=== PATIENT | male | born 1965 | race African-American/Black ===

== ENCOUNTER 2016-09-18 00:16 | Inpatient (IN) | payer SELFPAY ==
[~2016-09-18] VITALS: Ht 177.8 cm; Wt 94.5 kg
[2016-09-18] VITALS (56 sets, daily range): BP systolic 49–158; BP diastolic 20–97
[~2016-09-18 00:16] MED LIST: GLIP-116 PO; METF-314 PO
[2016-09-18 00:45] LABS: DEFINITIVE VIEW TRANSMISSION; Hemoglobin 10.5 g/dL (13.5-17.5); Mean Corpuscular Hemoglobin 26.2 pg (28.0-32.0); Mean Corpuscular Hgb Conc. 30.8 g/dL (32.0-36.0); Mean Platelet Volume 7.8 fL (7.4-10.4); Platelet Count (auto) 528 10^3/uL (140-450); Red Cell Distribution Width 16.5 % (11.6-16.0); SUSPECT VIEW TRANSMISSION
[2016-09-18 01:03] LABS: Albumin 1.8 g/dL (3.4-5.0); Anion Gap 24 (5-15); Calcium 8.4 mg/dL (8.5-10.1); Carbon Dioxide 14 mmol/L (21-32); Chloride 86 mmol/L (98-107); INR 1.14 (0.9-1.15); Magnesium 3.1 mg/dL (1.6-2.6); Partial Thromboplastin Time 29.4 sec (22.64-33.71); Potassium 5.5 mmol/L (3.5-5.1); Prothrombin Time 12.3 sec (9.37-12.3); Sodium 124 mmol/L (136-145)
[2016-09-18 01:05] LABS: Metamyelocytes % 0; Myelocytes % 0; Promyelocytes % 0; Reactive Lymphocytes 0
[2016-09-18 01:06] LABS: Aspartate Aminotransferase 14 U/L (15-37); BUN/Creatinine Ratio 40.1; Bilirubin, Total 2.1 mg/dL (0.2-1.0); GFR African American 35 mL/min; GFR Non-African American 29 mL/min; Total Protein 8.9 g/dL (6.4-8.2)
[2016-09-18 01:09] LABS: Alkaline Phosphatase 148 U/L (45-117)
[2016-09-18 01:11] LABS: Blood Urea Nitrogen 101 mg/dL (7-18); Glucose 775 mg/dL (74-106)
[2016-09-18] MEDS ORDERED: VANCOMYCIN 1GM/250ML D5W 250 ML IV ONE (01:15)
[2016-09-18] MEDS ORDERED: cefTRIAXone 1GM/50ML D5W 50 ML IV ONE (01:15)
[2016-09-18] MEDS ORDERED: SODIUM CHLORIDE 0.9% 1,000 ML IV ONE ×5 (01:30→11:00)
[2016-09-18 01:36] LABS: Lactic Acid w/Reflex 3.4 mmol/L (0.4-2.0)
[2016-09-18 01:44] LABS: Platelet Estimate Increased
[2016-09-18 01:49] LABS: REFLEX LACTIC ACID YES OR NO YES
[2016-09-18] MEDS ORDERED: InsuLIN REG 1unit/0.01ml Soln (100units/ml) IV ONE (02:00)
[2016-09-18 03:47] LABS: Lactic Acid w/Reflex 4.3 mmol/L (0.4-2.0)
[2016-09-18 04:00] LABS: REFLEX LACTIC ACID YES OR NO NO
[2016-09-18 04:19] LABS: Urine Blood TRACE /uL (Negative); Urine Color Yellow (Yellow); Urine Hyaline Cast MOD /lpf (0 - 2); Urine Ketone Negative (Negative); Urine Nitrite Negative (Negative); Urine RBC 1 /hpf (0 - 3); Urine Squamous Epithelial Cell FEW /hpf (<5)
[2016-09-18 04:20] LABS: Urine Bilirubin POSITIVE (Negative); Urine Glucose 4+ mg/dL (Normal)
[2016-09-18] MEDS ORDERED: NOREPINEPHRINE BITARTRATE 250 ML IV ONE (05:16)
[2016-09-18] MEDS ORDERED: InsuLIN R (HUMAN) 100 UNITS in SODIUM CHL 0.9% 99 ML IV SCH ×3 (05:29→10:01)
[2016-09-18] MEDS ORDERED: DEXTROSE (50%) 50ML SYRG IV PRN ×2 (05:30→07:15)
[2016-09-18] MEDS: NOREPINEPHRINE BITARTRATE 250 ML IV SCH ×2 (05:39→17:35)
[2016-09-18] MEDS: ACCU-CHEK COMFORT CURVE STRIP VI SCH ×15 (06:08→23:58)
[2016-09-18] MEDS ORDERED: ONDANSETRON HCL 4 MG/2 ML VIAL IV ONE (06:30)
[2016-09-18] MEDS ORDERED: HYDROmorphone HCL 2 MG/ML VL IV ONE (06:30)
[2016-09-18 06:33] LABS: Allen Test No; Base Excess -10.4 mmol/L (-2.0-2.0); Blood 02Sat 97.5 % (96-100); Blood COHb 0.3 % (0.5-1.5); Blood MetHb 0.3 % (0.0-1.5); HCO3 12.5 mmol/L (22-26.0); HHb 2.5 % (0.0-5.0); MODE NASAL CANNULA; O2Hb 96.9 % (94.0-97.0); PCO2 20.2 mmHg (35.0-45.0); PCO2(T) 20.2 mmHg (35.0-45.0); PO2 126.2 mmHg (80.0-100.0); PO2(T) 126.2 mmHg (80.0-100.0); Sample Type Arterial
[2016-09-18] MEDS ORDERED: ONDANSETRON HCL 4 MG/2 ML VIAL IV PRN (07:15)
[2016-09-18] MEDS ORDERED: ACETAMINOPHEN 325 MG TAB PO PRN (07:15)
[2016-09-18] MEDS ORDERED: NITROGLYCERIN 0.4 MG SL TAB SL PRN (07:15)
[2016-09-18] MEDS ORDERED: MORPHINE SULF INJ 2 MG/ML SYRINGE 1ML IV PRN ×2 (07:15)
[2016-09-18] MEDS: SODIUM CHLORIDE 0.9% 1,000 ML IV SCH ×4 (07:32→18:44)
[2016-09-18 08:18] LABS: Calcium 8.2 mg/dL (8.5-10.1); Potassium 4.9 mmol/L (3.5-5.1)
[2016-09-18] MEDS: ENOXAPARIN SOD 40 MG/0.4 ML SYRINGE SC SCH (09:53)
[2016-09-18] MEDS: PANTOPRAZOLE SODIUM 40 MG/10 ML VIAL IV SCH (09:53)
[2016-09-18 10:44] LABS: Allen Test Modified; Blood 02Sat 97.4 % (96-100); Blood COHb 1.1 % (0.5-1.5); Blood MetHb 0.3 % (0.0-1.5); HCO3 17.8 mmol/L (22-26.0); HHb 2.6 % (0.0-5.0); MODE NASAL CANNULA; PCO2 29.2 mmHg (35.0-45.0); PCO2(T) 29.2 mmHg (35.0-45.0); PO2 116.5 mmHg (80.0-100.0); PO2(T) 116.5 mmHg (80.0-100.0); Sample Type Arterial; pH 7.403 (7.350-7.450)
[2016-09-18] MEDS: ALBUMIN 25% 100 ML IV SCH ×2 (11:08→12:20)
[2016-09-18] MEDS ORDERED: fentaNYL CITRATE 100 MCG/2 ML VL ONE (12:19)
[2016-09-18] MEDS ORDERED: ETOMIDATE (2MG/ML) 20ML VIAL IV ONE (12:19)
[2016-09-18] MEDS ORDERED: MIDAZOLAM HCL 1MG/1ML-2 ML VIAL ONE ×2 (12:19→14:42)
[2016-09-18] MEDS ORDERED: PHENYLEPHRINE HCL 10 MG/ML VL ONE (12:19)
[2016-09-18] MEDS ORDERED: ROCURONIUM 10MG/ML 10ML VIAL IV ONE (12:19)
[2016-09-18] MEDS ORDERED: SODIUM CHLORIDE LOCK 20 ML ONE (12:19)
[2016-09-18] MEDS ORDERED: D5W/SOD CHL 0.45%/KCL 20MEQ 1,000 ML IV SCH (12:30)
[2016-09-18] MEDS ORDERED: VANCOMYCIN PER PHARMACY 0 MG IV SCH (13:00)
[2016-09-18] MEDS: PIPERACILLIN-TAZOB 3.375GM 100 ML IV SCH ×3 (13:00→23:58)
[2016-09-18] MEDS ORDERED: SODIUM CHLORIDE 0.9% 1,000 ML IV SCH (13:07)
[2016-09-18] MEDS: InsuLIN R (HUMAN) 100 UNITS in SODIUM CHL 0.9% 99 ML IV SCH ×2 (13:26→17:49)
[2016-09-18 14:00] LABS: Partial Thromboplastin Time 31.9 sec (22.64-33.71)
[2016-09-18] MEDS ORDERED: HYDROmorphone HCL 2 MG/ML VL ONE ×2 (14:09→14:29)
[2016-09-18 14:20] LABS: Albumin 2.3 g/dL (3.4-5.0); BUN/Creatinine Ratio 45.7; Bilirubin, Total 2.1 mg/dL (0.2-1.0); Calcium 7.9 mg/dL (8.5-10.1); Potassium 4.1 mmol/L (3.5-5.1); Total Protein 7.7 g/dL (6.4-8.2)
[2016-09-18 14:24] LABS: INR 1.2 (0.9-1.15)
[2016-09-18 14:26] LABS: DEFINITIVE VIEW TRANSMISSION; Hematocrit 24.8 % (41.0-53.0); Hemoglobin 8.2 g/dL (13.5-17.5); Mean Corpuscular Hemoglobin 27.1 pg (28.0-32.0); Mean Corpuscular Hgb Conc. 33.2 g/dL (32.0-36.0); Mean Corpuscular Volume 81.9 fL (80.0-100.0); Mean Platelet Volume 7.4 fL (7.4-10.4); Platelet Count (auto) 499 10^3/uL (140-450); Red Cell Distribution Width 17.4 % (11.6-16.0); SUSPECT VIEW TRANSMISSION; White Blood Cell 28.5 10^3/uL (4.4-10.8)
[2016-09-18 14:29] LABS: Metamyelocytes % 0; Myelocytes % 0; Promyelocytes % 0; Reactive Lymphocytes 0
[2016-09-18 14:48] LABS: Platelet Estimate Increased; RBC Morphology Normal
[2016-09-18] MEDS ORDERED: MIDAZOLAM DRIP 100 mg/100mL NS 100 ML IV SCH (16:03)
[2016-09-18] MEDS ORDERED: TPN PER PHARMACY 0 ML IV SCH (16:30)
[2016-09-18] MEDS ORDERED: ALBUMIN 25% 50 ML IV ONE ×2 (16:30)
[2016-09-18] MEDS: PHENYLEPHRINE INJ 20 MG in SODIUM CHL 0.9% 250 ML IV SCH ×2 (16:30→20:04)
[2016-09-18 16:50] LABS: Allen Test Modified; Base Excess -13.3 mmol/L (-2.0-2.0); Blood 02Sat 98.3 % (96-100); Blood COHb 1.1 % (0.5-1.5); Blood MetHb 0.1 % (0.0-1.5); HCO3 15.2 mmol/L (22-26.0); HHb 1.7 % (0.0-5.0); MODE VENT - A/C; O2Hb 97.1 % (94.0-97.0); PCO2 47.6 mmHg (35.0-45.0); PCO2(T) 47.6 mmHg (35.0-45.0); PO2 181.1 mmHg (80.0-100.0); PO2(T) 181.1 mmHg (80.0-100.0); Sample Type Arterial; pH 7.123 (7.350-7.450)
[2016-09-18] MEDS ORDERED: MAGNESIUM SULFATE 1GM/100ML 200 ML IV ONE (17:24)
[2016-09-18] MEDS ORDERED: SODIUM BICARBONATE 8.4% INJ 50ML SYRINGE ONE (17:47)
[2016-09-18] MEDS ORDERED: EPINEPHrine HCL 250 ML IV ONE (17:47)
[2016-09-18] MEDS ORDERED: EPINEPHrine HCL INJECTION 4 MG in D5W 5% 250 ML IV SCH (18:00)
[2016-09-18] MEDS: MAGNESIUM SULFATE 1GM/100ML 100 ML IV SCH ×2 (18:00→19:00)
[2016-09-18] MEDS ORDERED: SODIUM BICARBONATE 8.4 % INJ 50ML VIAL IV ONE ×2 (18:00→20:45)
[2016-09-18] MEDS ORDERED: D5W IV SCH (18:00)
[2016-09-18] MEDS ORDERED: SODIUM BICARBONATE IV SCH (18:00)
[2016-09-18] MEDS ORDERED: SODIUM BICARB IV SCH (18:00)
[2016-09-18 18:01] LABS: Albumin 1.9 g/dL (3.4-5.0); BUN/Creatinine Ratio 42.5; Calcium 6.6 mg/dL (8.5-10.1); Magnesium 2.7 mg/dL (1.6-2.6); Potassium 4.1 mmol/L (3.5-5.1)
[2016-09-18 18:03] LABS: Lactic Acid w/Reflex 5.5 mmol/L (0.4-2.0)
[2016-09-18 18:06] LABS: REFLEX LACTIC ACID YES OR NO YES
[2016-09-18 18:09] LABS: Bilirubin, Total 1.7 mg/dL (0.2-1.0); Total Protein 6.5 g/dL (6.4-8.2)
[2016-09-18 18:39] LABS: DEFINITIVE VIEW TRANSMISSION; Hematocrit 24.5 % (41.0-53.0); Hemoglobin 8.1 g/dL (13.5-17.5); Mean Corpuscular Hemoglobin 27.4 pg (28.0-32.0); Mean Corpuscular Hgb Conc. 33.1 g/dL (32.0-36.0); Mean Corpuscular Volume 82.8 fL (80.0-100.0); Mean Platelet Volume 7.1 fL (7.4-10.4); Platelet Count (auto) 533 10^3/uL (140-450); Red Cell Distribution Width 17.5 % (11.6-16.0); SUSPECT VIEW TRANSMISSION
[2016-09-18 18:42] LABS: White Blood Cell 43.2 10^3/uL (4.4-10.8)
[2016-09-18 18:43] LABS: Metamyelocytes % 0; Myelocytes % 0; Promyelocytes % 0; Reactive Lymphocytes 0
[2016-09-18] MEDS ORDERED: PHENYLEPHRINE IV 250 ML IV ONE (19:31)
[2016-09-18] MEDS ORDERED: VASOPRESSIN 20 UNIT/ML ONE (19:35)
[2016-09-18] MEDS ORDERED: VASOPRESSIN 50 UNITS in SODIUM CHL 0.9% 247.5 ML IV SCH (19:45)
[2016-09-18 20:01] LABS: Burr Cells FEW; Platelet Estimate Increased
[2016-09-18 20:30] LABS: Base Excess -13.2 mmol/L (-2.0-2.0); Blood 02Sat 69.8 % (96-100); Blood COHb 1.2 % (0.5-1.5); Blood MetHb 0.5 % (0.0-1.5); HCO3 17.7 mmol/L (22-26.0); HHb 29.7 % (0.0-5.0); MODE VENT - A/C; O2Hb 68.6 % (94.0-97.0); PCO2 76.9 mmHg (35.0-45.0); PCO2(T) 76.9 mmHg (35.0-45.0); PO2 54.9 mmHg (80.0-100.0); PO2(T) 54.9 mmHg (80.0-100.0); Sample Type Arterial; pH 6.979 (7.350-7.450)
[2016-09-18] MEDS: PHENYLEPHRINE INJ 40 MG in SODIUM CHL 0.9% 250 ML IV SCH (21:55)
[2016-09-18 23:19] LABS: Base Excess -3.1 mmol/L (-2.0-2.0); Blood 02Sat 99.4 % (96-100); Blood COHb 1.1 % (0.5-1.5); Blood MetHb 0.6 % (0.0-1.5); HCO3 22.6 mmol/L (22-26.0); HHb 0.6 % (0.0-5.0); MODE VENT - A/C; O2Hb 97.7 % (94.0-97.0); PCO2 43.9 mmHg (35.0-45.0); PCO2(T) 43.9 mmHg (35.0-45.0); Sample Type Arterial
[2016-09-19] VITALS (68 sets, daily range): BP systolic 0–162; BP diastolic 0–94
[2016-09-19] MEDS: ACCU-CHEK COMFORT CURVE STRIP VI SCH ×10 (01:07→11:00)
[2016-09-19 01:13] LABS: BUN/Creatinine Ratio 36.2; Calcium 6.9 mg/dL (8.5-10.1); Potassium 3.8 mmol/L (3.5-5.1)
[2016-09-19] MEDS: PHENYLEPHRINE INJ 40 MG in SODIUM CHL 0.9% 250 ML IV SCH ×2 (02:00→08:49)
[2016-09-19] MEDS ORDERED: InsuLIN R (HUMAN) 100 UNITS in SODIUM CHL 0.9% 99 ML IV SCH ×3 (03:01→05:36)
[2016-09-19 04:09] LABS: DEFINITIVE VIEW TRANSMISSION; Hematocrit 27.8 % (41.0-53.0); Mean Corpuscular Hemoglobin 26.9 pg (28.0-32.0); Mean Corpuscular Hgb Conc. 32.5 g/dL (32.0-36.0); Mean Corpuscular Volume 82.7 fL (80.0-100.0); Mean Platelet Volume 6.7 fL (7.4-10.4); Platelet Count (auto) 460 10^3/uL (140-450); Red Cell Distribution Width 17.9 % (11.6-16.0); SUSPECT VIEW TRANSMISSION; White Blood Cell 22.1 10^3/uL (4.4-10.8)
[2016-09-19 04:10] LABS: Promyelocytes % 0; Reactive Lymphocytes 0
[2016-09-19 04:44] LABS: Albumin 2.1 g/dL (3.4-5.0); BUN/Creatinine Ratio 36.1; Bilirubin, Total 2.8 mg/dL (0.2-1.0); Magnesium 3.2 mg/dL (1.6-2.6); Phosphorus 3.4 mg/dL (2.5-4.90); Potassium 3.9 mmol/L (3.5-5.1); Total Protein 7.2 g/dL (6.4-8.2); Uric Acid 11.9 mg/dL (3.5-7.2)
[2016-09-19 05:50] LABS: Metamyelocytes % 1; Myelocytes % 3
[2016-09-19 05:51] LABS: Platelet Estimate Adequate; RBC Morphology Normal
[2016-09-19] MEDS: PIPERACILLIN-TAZOB 3.375GM 100 ML IV SCH ×2 (05:58→14:15)
[2016-09-19] MEDS ORDERED: DEXTROSE (50%) 50ML SYRG IV SCH ×2 (08:45→09:00)
[2016-09-19] MEDS: NOREPINEPHRINE BITARTRATE 250 ML IV SCH (08:49)
[2016-09-19 09:20] LABS: Base Excess -9.8 mmol/L (-2.0-2.0); Blood 02Sat 97.8 % (96-100); Blood COHb 1.2 % (0.5-1.5); Blood MetHb 0.2 % (0.0-1.5); HCO3 13.7 mmol/L (22-26.0); HHb 2.2 % (0.0-5.0); MODE VENT - A/C; O2Hb 96.4 % (94.0-97.0); PCO2 22.5 mmHg (35.0-45.0); PCO2(T) 22.5 mmHg (35.0-45.0); Sample Type Arterial; pH 7.401 (7.350-7.450)
[2016-09-19] MEDS: ENOXAPARIN SOD 40 MG/0.4 ML SYRINGE SC SCH (10:07)
[2016-09-19] MEDS: PANTOPRAZOLE SODIUM 40 MG/10 ML VIAL IV SCH (10:07)
[2016-09-19] MEDS ORDERED: AMIODARONE HCL 150 MG in D5W 5% 100 ML IV ONE (10:45)
[2016-09-19] MEDS ORDERED: AMIODARONE HCL 900 MG in DEXTROSE 500 ML IV SCH ×2 (10:53→16:53)
[2016-09-19] MEDS ORDERED: INSULIN DETEMIR(LEVEMIR) 1unit/0.01ml Soln (100units/ml) SC ONE (11:45)
[2016-09-19] MEDS ORDERED: DEXTROSE (50%) 50ML SYRG IV PRN (11:45)
[2016-09-19] MEDS ORDERED: ACCU-CHEK COMFORT CURVE STRIP VI SCH ×3 (12:00)
[2016-09-19] MEDS ORDERED: InsuLIN REG 1unit/0.01ml Soln (100units/ml) SC SCH ×3 (12:00)
[2016-09-19 13:42] LABS: DEFINITIVE VIEW TRANSMISSION; Hematocrit 24.2 % (41.0-53.0); Hemoglobin 7.8 g/dL (13.5-17.5); Mean Corpuscular Hemoglobin 26.8 pg (28.0-32.0); Mean Corpuscular Hgb Conc. 32.2 g/dL (32.0-36.0); Mean Corpuscular Volume 83.2 fL (80.0-100.0); Mean Platelet Volume 7.2 fL (7.4-10.4); Platelet Count (auto) 467 10^3/uL (140-450); Red Cell Distribution Width 17.6 % (11.6-16.0); SUSPECT VIEW TRANSMISSION; White Blood Cell 28.6 10^3/uL (4.4-10.8)
[2016-09-19 13:56] LABS: Albumin 1.5 g/dL (3.4-5.0); Calcium 7.3 mg/dL (8.5-10.1); Potassium 4.3 mmol/L (3.5-5.1)
[2016-09-19 13:59] LABS: BUN/Creatinine Ratio 29.2
[2016-09-19 14:03] LABS: Bilirubin, Total 2.3 mg/dL (0.2-1.0); Total Protein 5.7 g/dL (6.4-8.2)
[2016-09-19 14:07] LABS: Metamyelocytes % 0; Myelocytes % 0; Promyelocytes % 0; Reactive Lymphocytes 0
[2016-09-19 14:41] LABS: Platelet Estimate Adequate; RBC Morphology Normal
[2016-09-19] MEDS ORDERED: PHENYLEPHRINE INJ 40 MG in SODIUM CHL 0.9% 250 ML IV SCH (16:30)
[2016-09-19] MEDS ORDERED: SODIUM BICARBONATE 50ML VIAL 150 ML in D5W 5% 1,000 ML IV SCH ×4 (18:00)
[2016-09-19] MEDS ORDERED: TPN PER PHARMACY IV NR ×9 (20:00)
[2016-09-20] MEDS ORDERED: INSULIN DETEMIR(LEVEMIR) 1unit/0.01ml Soln (100units/ml) SC SCH (07:00)
[2016-09-22 09:49] LABS: Hepatitis B Surface Antibody Negative
== END 2016-09-19 15:16 | disposition expired | DRG 853 ==
LOC: ER 00:16 → TELE 00:17 → ICU WEST 08:36
PROVIDERS: ADMIT Internal Medicine; ATTEND Internal Medicine
PROC: 5A1935Z Respiratory Ventilation, Less than 24 Consecutive Hours (ICD-10-PCS; 2016-09-18)
PROC: 0BH17EZ Insertion of Endotracheal Airway into Trachea, Via Natural or Artificial Opening (ICD-10-PCS; 2016-09-18)
PROC: 0Y680ZZ Detachment at Left Femoral Region, Open Approach (ICD-10-PCS; principal; 2016-09-18 13:40)
PROC: 02HV33Z Insertion of Infusion Device into Superior Vena Cava, Percutaneous Approach (ICD-10-PCS; 2016-09-19)
PROC: B548ZZA Ultrasonography of Superior Vena Cava, Guidance (ICD-10-PCS; 2016-09-19)
PROC: 30233N1 Transfusion of Nonautologous Red Blood Cells into Peripheral Vein, Percutaneous Approach (ICD-10-PCS; 2016-09-19)
DX: A41.9 Sepsis, unspecified organism (principal); R65.21 Severe sepsis with septic shock; E43 Unspecified severe protein-calorie malnutrition; G93.41 Metabolic encephalopathy; M72.6 Necrotizing fasciitis; N17.0 Acute kidney failure with tubular necrosis; J96.00 Acute respiratory failure, unspecified whether with hypoxia or hypercapnia; K72.00 Acute and subacute hepatic failure without coma; E13.10 Other specified diabetes mellitus with ketoacidosis without coma; G93.1 Anoxic brain damage, not elsewhere classified; L03.116 Cellulitis of left lower limb; I44.2 Atrioventricular block, complete; E87.1 Hypo-osmolality and hyponatremia; E11.52 Type 2 diabetes mellitus with diabetic peripheral angiopathy with gangrene; I47.1 Supraventricular tachycardia; I12.9 Hypertensive chronic kidney disease with stage 1 through stage 4 chronic kidney disease, or unspecified chronic kidney disease; E78.5 Hyperlipidemia, unspecified; F17.210 Nicotine dependence, cigarettes, uncomplicated; D63.8 Anemia in other chronic diseases classified elsewhere; E87.5 Hyperkalemia; I48.0 Paroxysmal atrial fibrillation; E86.0 Dehydration; N18.3 Chronic kidney disease, stage 3 (moderate); E11.21 Type 2 diabetes mellitus with diabetic nephropathy; Z66 Do not resuscitate; E11.22 Type 2 diabetes mellitus with diabetic chronic kidney disease; I46.9 Cardiac arrest, cause unspecified; J43.9 Emphysema, unspecified; Z83.3 Family history of diabetes mellitus; Z82.49 Family history of ischemic heart disease and other diseases of the circulatory system; Z68.29 Body mass index [BMI] 29.0-29.9, adult; Z89.412 Acquired absence of left great toe
CPT/HCPCS: 36415; 36600; 51702; 70450; 71010; 73700; 76937; 80048; 80053; 80307; 80320; 81001; 82010; 82040; 82550; 82805; 82962; 83036; 83605; 83735; 84100; 84478; 84484; 84550; 85007; 85027; 85610; 85730; 86706; 86803; 86850; 86900; 86901; 86920; 87040; 87070; 87077; 87081; 87186; 87205; 87340; 92950; 93005; 93306; 93971; 94003; 96361; 96365; 96366; 96368; 96375; C9113; J0171; J0696; J1815; J2250; J2405; J2543; J3490; J7060